=== PATIENT | female | born 1950 | race Caucasian/White ===

== ENCOUNTER 2021-08-22 13:38 | Inpatient (IN) | payer MEDICARE ==
[~2021-08-22] VITALS: Ht 161.3 cm; Wt 99.1 kg
[2021-08-22] MEDS ORDERED: AMITRIPTYLINE H10 MG PO (16:40)
[2021-08-22] MEDS ORDERED: LANTUS SOL100 UNIT/1 SQ (16:41)
[2021-08-22] MEDS ORDERED: MYRBETRIQ25 MG PO (16:56)
[2021-08-22] MEDS ORDERED: CLONIDINE HCL0.3 MG PO (16:56)
[2021-08-22] MEDS ORDERED: LOSARTAN-HCTZ1 EAC2 PO (16:56)
[2021-08-22] MEDS ORDERED: CYCLOBENZAPRINE10 MG PO (16:57)
[2021-08-22] MEDS ORDERED: GLUCOTROL5 MG PO (16:58)
[2021-08-22] MEDS ORDERED: DONEPEZIL HCL10 MG PO (16:58)
[2021-08-22] MEDS ORDERED: GABAPENTIN300 MG PO (16:58)
[2021-08-22] MEDS ORDERED: LORATADINE10 MG PO (16:59)
[2021-08-22] MEDS ORDERED: KLONOPIN TAB 00.5 MG PO (16:59)
[2021-08-22] MEDS ORDERED: CRESTOR20 MG PO (17:00)
[2021-08-22] MEDS ORDERED: B-12500 MCG PO (17:09)
[2021-08-22] MEDS ORDERED: VITAMIN D21250 MCG PO (17:09)
[2021-08-24 06:59] LABS: HEMOGLOBIN 9.1 gm/dl (12.3-15.3); RED BLOOD COUNT 2.92 M/UL (4.00-5.10); WHITE BLOOD COUNT 7.8 K/UL (4.5-11.0)
[2021-08-24 08:18] LABS: ANTISTREPTOLYSIN O AB 128.3 IU/mL (0.0-200.0); COMPLEMENT C3, SERUM 120 mg/dL (82-167); COMPLEMENT C4, SERUM 21 mg/dL (12-38)
[2021-08-24 13:12] LABS: ANTI-DSDNA ANTIBODIES <1 IU/mL (0-9)
[2021-08-24 16:15] LABS: A/G RATIO 0.9 (0.7-1.7); ALBUMIN 3.1 g/dL (2.9-4.4); ALPHA-1-GLOBULIN 0.3 g/dL (0.0-0.4); ALPHA-2-GLOBULIN 0.9 g/dL (0.4-1.0); BETA GLOBULIN 1.1 g/dL (0.7-1.3); GAMMA GLOBULIN 1.3 g/dL (0.4-1.8); GLOBULIN, TOTAL 3.5 g/dL (2.2-3.9); IMMUNOGLOBULIN A, QN, SERUM 625 mg/dL (64-422); IMMUNOGLOBULIN G, QN, SERUM 1228 mg/dL (586-1602); IMMUNOGLOBULIN M, QN, SERUM 129 mg/dL (26-217); M-SPIKE Not Observed g/dL (Not Observed); PROTEIN, TOTAL, SERUM 6.6 g/dL (6.0-8.5)
[2021-08-24 17:09] LABS: ATYPICAL PANCA <1:20 titer (Neg:<1:20); CYTOPLASMIC (C-ANCA) <1:20 titer (Neg:<1:20); PERINUCLEAR (P-ANCA) <1:20 titer (Neg:<1:20)
[2021-08-24 18:59] LABS: URINE CREATININE 21.2 mg/dL
[2021-08-25 07:12] LABS: HBSAG SCREEN Negative (Negative); HCV AB <0.1 (0.0-0.9); HEP A AB, IGM Negative (Negative); HEP B CORE AB, TOT Negative (Negative)
--- NOTE | 2021-08-25 10:51 | NUR ---
1050- HOSPITAL STAFF WITH PATIENT IN HALLWAY FLOOR. WAS INFORMED PT FELL AND THE PATIENT WAS SITTING IN CHAIR WITH STRIP ALARM. STRIP ALARM WAS NOT ACTIVATED WHEN PHYSICAL THERAPY SIT PT IN CHAIR. PT COMPLAINS OF HEAD HURTING AND STATED SHE HIT HER HEAD. NO VISIBLE FERNANDEZ, BRUISING OR CUTS. PT ABLE TO ANSWER QUESTIONS APPROPRIATELY WHEN ASK. PT WAS PUT BACK TO BED. PT ALERT, AWAKE, VITAL SIGNS STABLE. DR. IBANEZ WAS NOTIFED. ORDER FOR CT OF HEAD.
--- NOTE | 2021-08-25 11:52 | NUR ---
1100- NURSE TRIED TO CALL FAMILY AND NOTIFY THEM ABOUT FALL. NO ANSWER WILL TRY AGAIN.
--- NOTE | 2021-08-25 15:46 | NUR ---
1536- ATTEMPTED TO CALL PATIENTS DAUGHTER TO NOTIFY OF FALL.
[2021-08-31 03:58] LABS: HEMOGLOBIN 10.5 gm/dl (12.3-15.3); RED BLOOD COUNT 3.27 M/UL (4.00-5.10); WHITE BLOOD COUNT 7.5 K/UL (4.5-11.0)
[2021-09-01 06:32] LABS: HEMOGLOBIN 11.3 gm/dl (12.3-15.3); RED BLOOD COUNT 3.53 M/UL (4.00-5.10); WHITE BLOOD COUNT 7.5 K/UL (4.5-11.0)
[2021-09-07 06:24] LABS: HEMOGLOBIN 10.8 gm/dl (12.3-15.3); RED BLOOD COUNT 3.38 M/UL (4.00-5.10); WHITE BLOOD COUNT 7.7 K/UL (4.5-11.0)
[2021-09-08 06:56] LABS: HEMOGLOBIN 10.7 gm/dl (12.3-15.3); RED BLOOD COUNT 3.33 M/UL (4.00-5.10); WHITE BLOOD COUNT 7.8 K/UL (4.5-11.0)
[2021-09-09 07:01] LABS: HEMOGLOBIN 10.1 gm/dl (12.3-15.3); RED BLOOD COUNT 3.21 M/UL (4.00-5.10); WHITE BLOOD COUNT 6.6 K/UL (4.5-11.0)
[2021-09-09] MEDS ORDERED: BUMETANIDE1 MG PO (09:04)
[2021-09-09] MEDS ORDERED: FERROUS SULFAT325 M2 PO (09:04)
[2021-09-11 06:39] LABS: HEMOGLOBIN 10.4 gm/dl (12.3-15.3); RED BLOOD COUNT 3.23 M/UL (4.00-5.10); WHITE BLOOD COUNT 6.5 K/UL (4.5-11.0)
[2021-09-12 05:47] LABS: HEMOGLOBIN 10.1 gm/dl (12.3-15.3); RED BLOOD COUNT 3.09 M/UL (4.00-5.10); WHITE BLOOD COUNT 7.2 K/UL (4.5-11.0)
[2021-09-13 06:16] LABS: HEMOGLOBIN 10.3 gm/dl (12.3-15.3); RED BLOOD COUNT 3.13 M/UL (4.00-5.10); WHITE BLOOD COUNT 7.3 K/UL (4.5-11.0)
== END 2021-09-13 20:15 | DRG 682 ==
LOC: MED SURG 4 15:00 → M/S 15:00 → MED SURG 4 08-26 23:01
PROVIDERS: Internal Medicine; Internal Medicine Infectious Disease; Internal Medicine Nephrology; ADMIT Internal Medicine
PROC: B24BZZZ Ultrasonography of Heart with Aorta (ICD-10-PCS; principal; 2021-08-23)
DX: N17.9 Acute kidney failure, unspecified (principal); I50.33 Acute on chronic diastolic (congestive) heart failure; J96.21 Acute and chronic respiratory failure with hypoxia; Z20.822 Contact with and (suspected) exposure to COVID-19; I13.0 Hypertensive heart and chronic kidney disease with heart failure and stage 1 through stage 4 chronic kidney disease, or unspecified chronic kidney disease; J44.1 Chronic obstructive pulmonary disease with (acute) exacerbation; N30.00 Acute cystitis without hematuria; G93.49 Other encephalopathy; M48.55XA Collapsed vertebra, not elsewhere classified, thoracolumbar region, initial encounter for fracture; N18.4 Chronic kidney disease, stage 4 (severe); E87.6 Hypokalemia; E11.22 Type 2 diabetes mellitus with diabetic chronic kidney disease; G30.1 Alzheimer's disease with late onset; F02.80 Dementia in other diseases classified elsewhere, unspecified severity, without behavioral disturbance, psychotic disturbance, mood disturbance, and anxiety; E78.5 Hyperlipidemia, unspecified; F41.9 Anxiety disorder, unspecified; E11.21 Type 2 diabetes mellitus with diabetic nephropathy; F32.A Depression, unspecified; M81.0 Age-related osteoporosis without current pathological fracture; S00.93XA Contusion of unspecified part of head, initial encounter; I08.3 Combined rheumatic disorders of mitral, aortic and tricuspid valves; W18.30XA Fall on same level, unspecified, initial encounter; Y92.239 Unspecified place in hospital as the place of occurrence of the external cause; B19.20 Unspecified viral hepatitis C without hepatic coma; E66.9 Obesity, unspecified; I12.9 Hypertensive chronic kidney disease with stage 1 through stage 4 chronic kidney disease, or unspecified chronic kidney disease; D50.9 Iron deficiency anemia, unspecified; R53.81 Other malaise; D63.1 Anemia in chronic kidney disease; Z99.81 Dependence on supplemental oxygen; Z87.891 Personal history of nicotine dependence; Z86.73 Personal history of transient ischemic attack (TIA), and cerebral infarction without residual deficits; Z91.14 Patient's other noncompliance with medication regimen; Z84.1 Family history of disorders of kidney and ureter; Z79.4 Long term (current) use of insulin; Z87.440 Personal history of urinary (tract) infections; Z68.37 Body mass index [BMI] 37.0-37.9, adult
CPT/HCPCS: ECHO; 36415; 70450; 71045; 71046; 74150; 76536; 80048; 80053; 81001; 82565; 82570; 82575; 82607; 82728; 82746; 82784; 82962; 83036; 83520; 83540; 83550; 83605; 83735; 83880; 83883; 83970; 84100; 84155; 84156; 84165; 84443; 85025; 85027; 86038; 86060; 86140; 86160; 86162; 86225; 86256; 86334; 86704; 86705; 86706; 86708; 86709; 86803; 87077; 87086; 87186; 87340; 87522; 93306; 93971; 94640; 94664; 94760; 97110; 97110-GP-CQ; 97116; 97116-GP-CQ; 97161; 97166; 97530; 97530-GP-CQ; 97535; J0360; J0696; J1205; J1644; J1940; J3475; P9047; Q0177; U0002